=== PATIENT | female | born 1980 | race Caucasian/White ===

== ENCOUNTER 2018-03-17 03:59 | Inpatient (IN) | payer BC ==
[~2018-03-17] VITALS: Ht 154.9 cm; Wt 93.4 kg
[~2018-03-17 03:59] MED LIST: ADULT ASPIRIN81 MG PO; CLARITIN,ALAVAR10 MG PO; COLACE100 MG PO; NORCO 5/3251 TABLET PO; PRENATAL TABLE1 EAC3 PO
[2018-03-17 07:53] VITALS: BP 136/84
[2018-03-17 09:42] LABS: AMPHETAMINE NEGATIVE (500 ng/mL); BARBITURATES NEGATIVE (200 ng/mL); BENZODIAZEPINES NEGATIVE (150 ng/mL); BUPRENORPHINE NEGATIVE (10 ng/mL); COCAINE NEGATIVE (150 ng/mL); METHADONE NEGATIVE (200 ng/mL); METHAMPHETAMINE PRESUMPTIVE POSITIVE (500 ng/mL); OPIATES (MORPHINE) NEGATIVE (100 ng/mL); OXYCODONE NEGATIVE (100 ng/mL); PHENCYCLIDINE NEGATIVE (25 ng/mL); PROPOXYPHENE NEGATIVE (300 ng/mL); THC CANNABINOIDS NEGATIVE (50 ng/mL); TRICYCLIC ANTIDEPRESSANTS NEGATIVE (300 ng/mL)
[2018-03-17 13:52] VITALS: BP 123/71
[2018-03-17] MEDS ORDERED: NEO-SYNEPHRINE-15 ML BOTH NARES (14:26)
[2018-03-17 20:38] VITALS: BP 121/75
[2018-03-17 23:48] VITALS: BP 116/68
[2018-03-18] MEDS ORDERED: PERCOCET 5/31 TABLET PO (01:39)
[2018-03-18] MEDS ORDERED: MOTRIN800 MG PO (01:39)
[2018-03-18 03:04] VITALS: BP 117/71
[2018-03-18 07:00] LABS: BASOPHIL (%) 0.2 % (0-1); EOSINOPHIL (%) 0.9 % (0-5); EOSINOPHIL COUNT 0.1 K/uL (0-0.3); HEMATOCRIT 24.1 % (36.0-46.0); HEMOGLOBIN 7.5 G/DL (11.9-15.5); IMMATURE GRANULOCYTE (%) 0.5 % (0.0-0.7); LYMPHOCYTE (%) 25.7 % (15-42); LYMPHOCYTE COUNT 3.2 K/uL (1.0-2.8); MCH 25.2 PG (29.0-34.0); MCHC 31.1 G/DL (30.0-36.0); MCV 80.9 FL (83-99); MONOCYTE (%) 9.3 % (3-12); MONOCYTE COUNT 1.2 K/uL (0-0.8); NEUTROPHIL (%) 63.4 % (45-76); NEUTROPHIL COUNT 7.9 K/uL (1.8-6.4); NRBC (%) 0.2 /100 WBC (0-0); PLATELET COUNT 158 K/uL (156-360); RBC DIS.WIDTH-CV 15.2 % (11.8-14.6); RBC DIS.WIDTH-SD 44.7 % (39-53); RED BLOOD COUNT 2.98 M/uL (3.80-5.20); WHITE BLOOD COUNT 12.4 K/uL (4.1-10.2)
[2018-03-18 07:20] VITALS: BP 113/61
[2018-03-18 11:59] VITALS: BP 124/73
[2018-03-18 14:46] VITALS: BP 118/57
[2018-03-18 19:14] VITALS: BP 124/84
[2018-03-19 00:22] VITALS: BP 123/70
[2018-03-19 03:05] VITALS: BP 106/62
[2018-03-19 07:46] VITALS: BP 115/73
[2018-03-19 11:12] VITALS: BP 132/75
== END 2018-03-21 16:12 | disposition home or self-care (01) | DRG 766 ==
LOC: 2SOUTH 03:59 → 2WEST 07:37 → 2SOUTH 15:16 → 2WEST 03-19 11:07
PROVIDERS: Obstetrics & Gynecology
DX: O34.211 Maternal care for low transverse scar from previous cesarean delivery (principal); O32.1XX0 Maternal care for breech presentation, not applicable or unspecified; Z37.0 Single live birth; Z3A.37 37 weeks gestation of pregnancy; O99.62 Diseases of the digestive system complicating childbirth; K58.9 Irritable bowel syndrome, unspecified; O75.89 Other specified complications of labor and delivery; O99.214 Obesity complicating childbirth; Z68.34 Body mass index [BMI] 34.0-34.9, adult; G43.909 Migraine, unspecified, not intractable, without status migrainosus
CPT/HCPCS: 85025; 86850; 86900; 86901; J0690; J1100; J2274; J2405; J3010; J7120; S0020